=== PATIENT | female | born 1990 | race Caucasian/White ===

== ENCOUNTER 2018-08-27 08:42 | Emergency (ER) | payer OTHER ==
--- NOTE | 2018-08-27 09:40 | XRAY Report ---
Reason: Pain with walking Procedure Date: 08/27/2018 Accession Number: [id number] / [id number] Procedure: XR - Foot 3 View RT CPT Code: FULL RESULT: EXAM: RIGHT FOOT RADIOGRAPHY EXAM DATE: 08/27/2018 09:22 AM. CLINICAL HISTORY: Pain with walking. COMPARISON: None. TECHNIQUE: 3 views. FINDINGS: Bones: Normal. No fractures or bone lesions. Secondary ossicle adjacent to the navicular. Joints: Normal. No subluxations. Soft Tissues: Normal. No soft tissue swelling. IMPRESSION: Normal foot radiography. RADIA
--- NOTE | 2018-08-27 10:47 | ED Physician Documentation ---
PD HPI LOWER EXT INJURY - Stated complaint Stated Complaint: RT FOOT INJURY - Chief complaint Chief Complaint: Ext Problem - History obtained from History obtained from: Patient, Family - History of Present Illness PD HPI LOW EXT INJURY LOCATION: Right, Foot Type of injury: Twist Where injury occurred: Park Timing - onset: Yesterday Timing - duration: Days (1) Timing - details: Abrupt onset, Still present Improved by: Rest, Ice, Immobilization Worsened by: Moving, Palpating Associated symptoms: No: Weakness, Numbness, Tingling, Swelling Similar symptoms before: Has not had sx before Recently seen: Not recently seen - Additional information Additional information: 28-year-old female was playing softball yesterday when she was playing first base she caught the ball and went to turn around and twisted her foot and she has some pain along the medial aspect of the right foot. She is having pain with weightbearing. Review of Systems Constitutional: denies: Fever Eyes: denies: Decreased vision Ears: denies: Ear pain Nose: denies: Congestion Throat: denies: Sore throat Respiratory: denies: Cough GI: denies: Vomiting PD PAST MEDICAL HISTORY - Past Medical History Cardiovascular: None Respiratory: None Endocrine/Autoimmune: None GI: None : None HEENT: None Psych: Depression Musculoskeletal: None Derm: None - Past Surgical History Past Surgical History: Yes General: Appendectomy - Present Medications Home Medications: Ambulatory Orders Medication Instructions Recorded Confirmed Sertraline HCl [Zoloft] 100 mg PO DAILY 03/15/14 10/07/14 Naproxen [Naprosyn] 250 mg PO DAILY 10/07/14 10/07/14 Sulfamethoxazole/Trimethoprim 1 each PO BID #14 tablet 10/07/14 [Sulfamethoxazole-Tmp Ds Tablet] - Allergies Allergies/Adverse Reactions: Allergies Allergy/AdvReac Type Severity Reaction Status Date / Time No Known Drug Allergies Allergy Verified 08/27/18 09:04 - Social History Does the pt smoke?: No Smoking Status: Never smoker Does the pt drink ETOH?: No Does the pt have substance abuse?: No - Immunizations Immunizations are current?: Yes - POLST Patient has POLST: No PD ED PE NORMAL - Vitals Vital signs reviewed: Yes (normal ) - General General: Alert and oriented X 3, No acute distress, Well developed/nourished - HEENT HEENT: Atraumatic, PERRL, EOMI - Respiratory Respiratory: No respiratory distress - Derm Derm: Normal color, Warm and dry, No rash - Extremities Extremities: No deformity, No edema, Other (There is pain to palpation of the medial aspect of the right foot over the cuboid and not over the proxima 5th or the malleoli ) - Neuro Neuro: Alert and oriented X 3, mat making machine tender 2-12 intact, No motor deficit, No sensory deficit, Normal speech Eye Opening: Spontaneous Motor: Obeys Commands Verbal: Oriented GCS Score: 15 - Psych Psych: Normal mood, Normal affect Results - Vitals Vitals: Vital Signs - 24 hr 08/27/18 08/27/18 09:01 11:29 Temperature 35.9 C L Heart Rate 67 64 Respiratory 18 14 Rate Blood Pressure 103/67 106/81 H O2 Saturation 100 97 Oxygen O2 Source Room air - Rads (name of study) foot R Radiology: Prelim report reviewed (Impression: Normal foot radiography.), EMP read indepedently, See rad report PD MEDICAL DECISION MAKING - ED course Complexity details: reviewed results, re-evaluated patient, considered differential, d/w patient ED course: 28-year-old female with a sprain of her foot will require a posterior splint and crutches. Departure - Departure Disposition: 01 Home, Self Care Clinical Impression: Right foot sprain Qualifiers: Encounter type: initial encounter Qualified Code(s): S93.601A - Unspecified sprain of right foot, initial encounter Condition: Stable Instructions: ED Sprain Foot Follow-Up: [facility] [Provider Group] Forms: Activity restrictions Discharge Date/Time: 08/27/18 11:29
[2018-08-27 11:30] VITALS: BP 106/81
== END 2018-08-27 11:29 | disposition home or self-care (01) ==
LOC: ED 08:42
DX: S93.601A Unspecified sprain of right foot, initial encounter (principal); X50.1XXA Overexertion from prolonged static or awkward postures, initial encounter; Y93.64 Activity, baseball; Y92.830 Public park as the place of occurrence of the external cause
CPT/HCPCS: 29515

== ENCOUNTER 2019-02-17 11:26 | Emergency (ER) | payer OTHER ==
--- NOTE | 2019-02-17 12:14 | ED Physician Documentation ---
History of Present Illness - Stated complaint Stated Complaint: COUGH/SORE THROAT - Chief complaint Chief Complaint: Fever - Additonal information Additional information: This is a 28-year-old female who denies past medical history who presents with cough, sore throat, and bilateral ear discomfort for the last 3 days. Her son has been sick with similar symptoms. She has not had measured fever recently, she felt a tactile fever initially with her symptoms. She denies any difficulty breathing or chest pain, no vomiting. Review of Systems Cardiac: denies: Chest pain / pressure Respiratory: reports: Cough Skin: denies: Rash Immunocompromised: denies: Immunocompromised PD PAST MEDICAL HISTORY - Past Medical History Cardiovascular: None Respiratory: None Endocrine/Autoimmune: None GI: None : None HEENT: None Psych: Depression Musculoskeletal: None Derm: None - Past Surgical History Past Surgical History: Yes General: Appendectomy - Present Medications Home Medications: Ambulatory Orders Medication Instructions Recorded Confirmed Sertraline HCl [Zoloft] 100 mg PO DAILY 03/15/14 10/07/14 Naproxen [Naprosyn] 250 mg PO DAILY 10/07/14 10/07/14 Sulfamethoxazole/Trimethoprim 1 each PO BID #14 tablet 10/07/14 [Sulfamethoxazole-Tmp Ds Tablet] Benzonatate [Tessalon Perle] 100 - 200 mg PO TID PRN #30 capsule 02/17/19 Triamcinolone 0.1% Oint [Kenalog 1 applic TOP BID 7 Days #1 tube 02/17/19 0.1% Oint] - Allergies Allergies/Adverse Reactions: Allergies Allergy/AdvReac Type Severity Reaction Status Date / Time No Known Drug Allergies Allergy Verified 02/17/19 11:32 - Social History Does the pt smoke?: No Smoking Status: Never smoker Does the pt drink ETOH?: No Does the pt have substance abuse?: No - Immunizations Immunizations are current?: Yes - POLST Patient has POLST: No PD ED PE NORMAL - Vitals Vital signs reviewed: Yes - General General: Alert and oriented X 3, No acute distress - HEENT HEENT: Atraumatic, PERRL, Other (Mild posterior pharynx erythema without edema or exudate) - Neck Neck: Supple, no meningeal sign - Cardiac Cardiac: RRR - Respiratory Respiratory: Clear bilaterally - Abdomen Abdomen: Soft, Non tender, Non distended - Derm Derm: Warm and dry - Extremities Extremities: No deformity, Other (On the left palm there is a 1 cm region of dry skin mild erythema, no open sores, no surrounding lesions, there are no other spots on her palms or soles.) - Neuro Neuro: Alert and oriented X 3 - Psych Psych: Normal mood, Normal affect Results - Vitals Vitals: Vital Signs - 24 hr 02/17/19 02/17/19 11:32 13:59 Temperature 36.8 C 36.8 C Heart Rate 76 75 Respiratory 16 12 Rate Blood Pressure 103/70 106/75 O2 Saturation 98 98 Oxygen O2 Source Room air - Labs Labs: Laboratory Tests 02/17/19 02/17/19 11:39 12:50 Influenza A (Rapid) Negative Influenza B (Rapid) Negative Group A Strep Rapid Negative PD MEDICAL DECISION MAKING - ED course ED course: Patient is very well-appearing, vital signs are unremarkable, rapid strep and influenza testing is negative, and I think she is low risk for strep given her overall picture which is consistent with a viral URI. She has no signs of a suppurative otitis media, pneumonia, or other bacterial infection requiring antibiotics at this time. I discussed with her supportive care and return precautions. Patient also mentions that she has a area on her left hand which is dry and irritated, this has gotten worse after repeated handwashing. This appears to be likely some mild eczema, we will try a low-dose steroid cream. Other differentials were considered, but she has no signs of infection, vasculitis, no other lesions, no history that would suggest syphilis or coxsackie. She understands that if she is having worsening or not she needs to follow-up on this with her primary care provider. Patient was discharged home in good condition Departure - Departure Disposition: 01 Home, Self Care Clinical Impression: Viral syndrome Condition: Good Instructions: ED Viral Syndrome Follow-Up: Ade Rahman MD [Primary Care Provider] - Prescriptions: Benzonatate [Tessalon Perle] 100 - 200 mg PO TID PRN #30 capsule PRN Reason: Cough Triamcinolone 0.1% Oint [Kenalog 0.1% Oint] 1 applic TOP BID 7 Days #1 tube Comments: You appear to have a viral illness, your rapid strep is negative but we are send ing it for culture and you will be called if this turns positive. You may take the Tessalon Perles for cough, and [id number] cold/flu remedies. You may try a Benadryl or a phenylephrine-containing cold remedy to help with your nasal congestion. If you are having worsening symptoms return to the emergency department. Drink plenty of fluids and get adequate rest. Try the steroid cream on the dry spot on your hand, if it is not improving or getting worse you should either return to the emergency department or follow-up with your primary care provider for further evaluation. Discharge Date/Time: 02/17/19 14:06
[2019-02-17 13:11] LABS: RAPID STREP SCREEN Negative (Negative)
[2019-02-17] MEDS ORDERED: CHERRY SYRUP 10 ML UDC PO ONE (13:49)
[2019-02-17] MEDS ORDERED: DEXAMETHASONE 10 MG/ML VIAL PO STA (13:49)
[2019-02-17 14:00] VITALS: BP 106/75
== END 2019-02-17 14:06 | disposition home or self-care (01) ==
LOC: ED 11:26
DX: B34.9 Viral infection, unspecified (principal); L98.9 Disorder of the skin and subcutaneous tissue, unspecified
CPT/HCPCS: 87070; 87275; 87276; 87430; 99283; A9270

== ENCOUNTER 2019-06-06 16:21 | Emergency (ER) | payer OTHER ==
[2019-06-06] MEDS ORDERED: SODIUM CHLORIDE 0.9% 1,000 ML IV ONE (16:36)
[2019-06-06] MEDS ORDERED: PROMETHAZINE INJ 25 MG in SODIUM CHLORIDE 0.9% 50 ML IV STA (16:37)
[2019-06-06] MEDS ORDERED: KETOROLAC 30 MG/ML VIAL IVP STA (16:37)
--- NOTE | 2019-06-06 16:48 | ED Physician Documentation ---
History of Present Illness - Stated complaint Stated Complaint: CUELLO,N/V,BLURRED VISION - Chief complaint Chief Complaint: Neuro - History obtained from History obtained from: Patient (Pleasant 28-year-old female comes in today chief complaint of a migraine headache that started this afternoon around noon, started suddenly, started on the right eye and the pain goes to the back of her head. She took 2 migraine Excedrin at 1230, she had no relief 2 hours later so she took 2 more which again provided no relief for her. She did try a friend's Imitrex nasal spray at approximately 330, this has not helped her either. She does admit to having some nausea vomiting with this. She also admits that she has a history of migraine headaches since she was about 9 years old, she is not sought out medical treatment for her migraine headaches in the past. She denies any recent fevers chills diarrhea, or any sick contacts at home. She is on oral contraceptive control pills, Zoloft for depression. She has no other concerns today.) - History of Present Illness Timing: Today, How many hours ago (5) Pain level max: 9 Pain level now: 9 Quality: sharp Radiates to: from right right to back of her head on the right Improved by: nothing Worsened by: light, movement. Associated symptoms: nausea, vomiting. - Treatment prior to arrival Treatment prior to arrival: excedrin Migraine x 2 at noon, and then again 2 more at 1430. imitrex nasal x 1, two hours ago. Review of Systems Constitutional: reports: Reviewed and negative Eyes: reports: Decreased vision, Photophobia. denies: Loss of vision, Irritation Ears: reports: Reviewed and negative Nose: reports: Reviewed and negative Throat: reports: Reviewed and negative Cardiac: reports: Reviewed and negative. denies: Chest pain / pressure, Palpitations Respiratory: denies: Dyspnea, Cough, Hemoptysis, Wheezing GI: reports: Nausea, Vomiting. denies: Abdominal Pain, Constipation, Diarrhea : reports: LMP ("three weeks ago") Skin: reports: Reviewed and negative Musculoskeletal: reports: Reviewed and negative Neurologic: reports: Headache. denies: Generalized weakness, Focal weakness, Difficulty speaking, Syncope, Seizure, Confused, Altered mental status, Head injury PD PAST MEDICAL HISTORY - Past Medical History Cardiovascular: None Respiratory: None Endocrine/Autoimmune: None GI: None : None HEENT: None Psych: Depression Musculoskeletal: None Derm: None - Past Surgical History Past Surgical History: Yes General: Appendectomy Neuro: Other (Migraine headaches) - Present Medications Home Medications: Ambulatory Orders Medication Instructions Recorded Confirmed Sertraline HCl [Zoloft] 100 mg PO DAILY 03/15/14 10/07/14 Naproxen [Naprosyn] 250 mg PO DAILY 10/07/14 10/07/14 Sulfamethoxazole/Trimethoprim 1 each PO BID #14 tablet 10/07/14 [Sulfamethoxazole-Tmp Ds Tablet] Benzonatate [Tessalon Perle] 100 - 200 mg PO TID PRN #30 capsule 02/17/19 Triamcinolone 0.1% Oint [Kenalog 1 applic TOP BID 7 Days #1 tube 02/17/19 0.1% Oint] Ondansetron Odt [Zofran Odt] 4 mg TL Q6H PRN #10 tablet 06/06/19 - Allergies Allergies/Adverse Reactions: Allergies Allergy/AdvReac Type Severity Reaction Status Date / Time No Known Drug Allergies Allergy Verified 06/06/19 16:30 - Social History Does the pt smoke?: No Smoking Status: Never smoker Does the pt drink ETOH?: No Does the pt have substance abuse?: No - Immunizations Immunizations are current?: Yes - POLST Patient has POLST: No PD ED PE NORMAL - General General: Alert and oriented X 3, Well developed/nourished, Other (Moderate distress) - HEENT HEENT: Atraumatic, PERRL, EOMI, Moist mucous membranes, Pharynx benign - Neck Neck: Supple, no meningeal sign, No adenopathy - Cardiac Cardiac: RRR, No murmur, No gallop - Respiratory Respiratory: No respiratory distress, Clear bilaterally - Abdomen Abdomen: Soft, Non tender - Derm Derm: Normal color, Warm and dry, No rash PD ED PE EXPANDED - General General: In Pain, In distress Results - Vitals Vitals: Vital Signs - 24 hr 06/06/19 16:26 Temperature 36.2 C L Heart Rate 75 Respiratory 16 Rate Blood Pressure 109/77 O2 Saturation 100 Oxygen O2 Source Room air - Labs Labs: Laboratory Tests 06/06/19 06/06/19 16:45 16:45 WBC 9.2 RBC 4.70 Hgb 14.3 Hct 42.7 MCV 90.9 MCH 30.4 MCHC 33.5 RDW 12.4 Plt Count 207 MPV 10.7 Neut # (Auto) 7.2 H Lymph # (Auto) 1.5 [place] # (Auto) 0.4 Eos # (Auto) 0.0 Baso # (Auto) 0.0 Absolute Nucleated RBC 0.00 Nucleated RBC % 0.0 Sodium 135 Potassium 3.5 Chloride 101 Carbon Dioxide 25 Anion Gap 9.0 BUN 11 Creatinine 0.6 Estimated GFR (MDRD) 118 Glucose 104 H Calcium 9.0 Total Bilirubin 0.7 AST 19 ALT 17 Alkaline Phosphatase 34 L Total Protein 8.1 Albumin 4.5 Globulin 3.6 Albumin/Globulin Ratio 1.3 Lipase 48 - Rads (name of study) No standard instances Radiology: See rad report (Head CT impression: Negative for acute or focal intracranial abnormalities.) PD MEDICAL DECISION MAKING - ED course Complexity details: re-evaluated patient (Patient is doing much better after the IV fluid and IV medications. She states her pain now is about a four 4-1/2 out of 10, worse before was intermittent when she arrived. Patient states she is ready to go home. Discussed with the patient options she can do at home should she feel migraine, not in the future that include taking ibuprofen, Tylenol, caffeine, and Benadryl orally then lie down for an hour or 2 resting. Patient understands this and agrees with it. She would also like some Zofran to go home up to help with nausea in the future.), d/w patient Departure - Departure Disposition: 01 Home, Self Care Clinical Impression: Migraine headache with aura Qualifiers: Status migrainosus presence: without status migrainosus Intractability: not intractable Qualified Code(s): G43.109 - Migraine with aura, not intractable, without status migrainosus Condition: Good Instructions: ED Headache Migraine Prescriptions: Ondansetron Odt [Zofran Odt] 4 mg TL Q6H PRN #10 tablet PRN Reason: Nausea / Vomiting Comments: follow up with your primary care provider. Do not drink or drive today. Take it easy the rest of today. As I discussed I do you can use Tylenol, ibuprofen, Benadryl, caffeine, and antinausea pills are prescribed for you today for future migraine headaches to hopefully prevent him from getting as bad as they were today. Make sure you are stay well-hydrated.
[2019-06-06] MEDS ORDERED: diphenhydrAMINE INJ 50 MG/ML VIAL IVP STA (16:52)
[2019-06-06 17:05] LABS: BASOPHILS % (AUTO) 0.3 %; EOSINOPHILS % (AUTO) 0.2 %; HGB - HEMOGLOBIN 14.3 g/dL (12.0-16.0); LYMPHOCYTES # (AUTO) 1.5 10^3/uL (1.5-3.5); LYMPHOCYTES % (AUTO) 16.1 %; MEAN CORPUSCULAR HEMOGLOBIN 30.4 pg (27.0-31.0); MEAN CORPUSCULAR HGB CONC 33.5 g/dL (32.0-36.0); MEAN CORPUSCULAR VOLUME 90.9 fL (81.0-99.0); MEAN PLATELET VOLUME 10.7 fL (7.9-10.8); MONOCYTES # (AUTO) 0.4 10^3/uL (0.0-1.0); MONOCYTES % (AUTO) 4.5 %; NEUTROPHILS # (AUTO) 7.2 10^3/uL (1.5-6.6); NEUTROPHILS % (AUTO) 78.4 %; PLT - PLATELET COUNT 207 10^3/uL (130-450); RED CELL DISTRIBUTION WIDTH 12.4 % (12.0-15.0); WHITE BLOOD COUNT 9.2 x10^3/uL (4.8-10.8)
[2019-06-06 17:16] LABS: ALBUMIN 4.5 g/dL (3.2-5.5); ALBUMIN/GLOBULIN RATIO 1.3 (1.0-2.2); BILIRUBIN,TOTAL 0.7 mg/dL (0.2-1.0); CREATININE 0.6 mg/dL (0.4-1.0); TOTAL PROTEIN 8.1 g/dL (6.7-8.2)
--- NOTE | 2019-06-06 17:39 | CT Report ---
Reason: change in vision OD, headache on right side. Procedure Date: 06/06/2019 Accession Number: [id number] / [id number] Procedure: CT - HEAD WO CPT Code: Final Report FULL RESULT: EXAM: CT HEAD EXAM DATE: 06/06/2019 05:25 PM. CLINICAL HISTORY: Change in vision OD, headache on right side. COMPARISON: None. TECHNIQUE: Multiaxial CT images were obtained from the foramen magnum to the vertex. Reformats: Sagittal and coronal. IV contrast: None. In accordance with CT protocol optimization, one or more of the following dose reduction techniques were utilized for this exam: automated exposure control, adjustment of mA and/or KV based on patient size, or use of iterative reconstructive technique. FINDINGS: Parenchyma: No intraparenchymal hemorrhage. No evidence of mass, midline shift, or CT findings of infarction. Carlin-white differentiation is distinct. Extraaxial Spaces: Normal for age. No subdural or epidural collections identified. Ventricles: Normal in size and position. Sinuses and Orbits: There is complete opacification of the left mastoid sinus. Bones: Negative for fracture. No focal bony destruction. Other: None. IMPRESSION: 1. Negative for an acute or focal intracranial abnormality. No CT abnormality to explain clinical symptoms. 2. Left mastoid sinus inflammatory disease. RADIA
[2019-06-06 18:11] VITALS: BP 105/68
== END 2019-06-06 18:12 | disposition home or self-care (01) ==
LOC: ED 16:21
DX: G43.109 Migraine with aura, not intractable, without status migrainosus (principal); J32.8 Other chronic sinusitis
CPT/HCPCS: 36415; 70450; 80053; 83690; 85025; 96365; 96375; 99284; J1200; J7040

== ENCOUNTER 2020-03-23 18:43 | Emergency (ER) | payer OTHER ==
[2020-03-23 19:22] LABS: BILIRUBIN,URINE NEGATIVE (NEGATIVE); GLUCOSE, URINE (UA) NEGATIVE (NEGATIVE); KETONES,URINE (UA) NEGATIVE (NEGATIVE); LEUKOCYTE ESTERASE, URINE NEGATIVE (NEGATIVE); NITRITE,URINE NEGATIVE (NEGATIVE); OCCULT BLOOD,URINE TRACE-INTA (NEGATIVE); PROTEIN,URINE NEGATIVE (NEGATIVE); UROBILINOGEN,URINE 0.2 (NORMAL) E.U./dL (NORMAL)
[2020-03-23 19:24] LABS: BASOPHILS % (AUTO) 0.4 %; EOSINOPHILS # (AUTO) 0.1 10^3/uL (0.0-0.7); EOSINOPHILS % (AUTO) 0.6 %; HGB - HEMOGLOBIN 13.7 g/dL (12.0-16.0); LYMPHOCYTES # (AUTO) 2.9 10^3/uL (1.5-3.5); LYMPHOCYTES % (AUTO) 27.1 %; MEAN CORPUSCULAR HEMOGLOBIN 30.5 pg (27.0-31.0); MEAN CORPUSCULAR HGB CONC 33.6 g/dL (32.0-36.0); MEAN CORPUSCULAR VOLUME 90.9 fL (81.0-99.0); MEAN PLATELET VOLUME 10.7 fL (7.9-10.8); MONOCYTES # (AUTO) 0.5 10^3/uL (0.0-1.0); MONOCYTES % (AUTO) 4.4 %; NEUTROPHILS # (AUTO) 7.1 10^3/uL (1.5-6.6); NEUTROPHILS % (AUTO) 67.1 %; PLT - PLATELET COUNT 258 10^3/uL (130-450); RED BLOOD COUNT 4.49 10^6/uL (4.20-5.40); RED CELL DISTRIBUTION WIDTH 12.8 % (12.0-15.0); WHITE BLOOD COUNT 10.5 x10^3/uL (4.8-10.8)
[2020-03-23 19:25] LABS: CLARITY,URINE CLEAR (CLEAR); HCG UR QUAL POSITIVE
[2020-03-23 19:35] LABS: ALBUMIN 4.3 g/dL (3.2-5.5); ALBUMIN/GLOBULIN RATIO 1.2 (1.0-2.2); BILIRUBIN,TOTAL 0.6 mg/dL (0.2-1.0); CALCIUM 9.2 mg/dL (8.5-10.3); CREATININE 0.6 mg/dL (0.4-1.0); TOTAL PROTEIN 7.9 g/dL (6.7-8.2)
--- NOTE | 2020-03-23 20:56 | ED Physician Documentation ---
PD HPI FEMALE - Stated complaint Stated Complaint: FEMALE - Chief complaint Chief Complaint: Abd Pain - History obtained from History obtained from: Patient - History of Present Illness Timing - onset: How many days ago (2) Timing - duration: Days (2) Timing - details: Gradual onset Pain level max: 3 Pain level max: 2 Associated symptoms: Abdominal pain (lower abd pain and L pelvic pain), Vaginal bleeding (heavy, intermittent for 3 days) [employer] History: G (5), P (4) Recently seen: Not recently seen - Additional information Additional information: 29-year-old female presents to the emergency department with heavy vaginal bleeding intermittent for the past 3 days. She also has intermittent pelvic cramping. Nothing makes it better or worse. She is on oral contraceptives at home. Review of Systems Constitutional: denies: Fever, Chills Respiratory: denies: Cough GI: denies: Vomiting, Diarrhea : denies: Dysuria Skin: denies: Rash Musculoskeletal: denies: Neck pain, Back pain PD PAST MEDICAL HISTORY - Past Medical History Past Medical History: Yes Cardiovascular: None Respiratory: None Endocrine/Autoimmune: None GI: None : None HEENT: None Psych: Depression Musculoskeletal: None Derm: None - Past Surgical History Past Surgical History: Yes General: Appendectomy Neuro: Other - Present Medications Home Medications: Ambulatory Orders Medication Instructions Recorded Confirmed Sertraline HCl [Zoloft] 100 mg PO DAILY 03/15/14 10/07/14 Naproxen [Naprosyn] 250 mg PO DAILY 10/07/14 10/07/14 Sulfamethoxazole/Trimethoprim 1 each PO BID #14 tablet 10/07/14 [Sulfamethoxazole-Tmp Ds Tablet] Benzonatate [Tessalon Perle] 100 - 200 mg PO TID PRN #30 capsule 02/17/19 Triamcinolone 0.1% Oint [Kenalog 1 applic TOP BID 7 Days #1 tube 02/17/19 0.1% Oint] Ondansetron Odt [Zofran Odt] 4 mg TL Q6H PRN #10 tablet 06/06/19 - Allergies Allergies/Adverse Reactions: Allergies Allergy/AdvReac Type Severity Reaction Status Date / Time No Known Drug Allergies Allergy Verified 03/23/20 18:52 - Social History Does the pt smoke?: No Smoking Status: Never smoker Does the pt drink ETOH?: No Does the pt have substance abuse?: No - Immunizations Immunizations are current?: Yes - POLST Patient has POLST: No PD ED PE NORMAL - Vitals Vital signs reviewed: Yes - General General: Alert and oriented X 3, No acute distress - HEENT HEENT: Moist mucous membranes - Neck Neck: Supple, no meningeal sign - Cardiac Cardiac: RRR, Strong equal pulses - Respiratory Respiratory: No respiratory distress, Clear bilaterally - Abdomen Abdomen: Soft, Non tender, Non distended - Derm Derm: Warm and dry - Extremities Extremities: No edema, No calf tenderness / cord - Neuro Neuro: Alert and oriented X 3 - Psych Psych: Normal mood, Normal affect Results - Vitals Vitals: Vital Signs - 24 hr 03/23/20 03/23/20 03/23/20 18:45 20:32 22:13 Temperature 36.5 C 36.9 C 37.0 C Heart Rate 99 85 75 Respiratory 14 18 14 Rate Blood Pressure 127/76 121/71 122/77 O2 Saturation 75 L 98 98 Oxygen O2 Source Room air - Labs Labs: Laboratory Tests 03/23/20 03/23/20 03/23/20 19:10 19:16 19:16 WBC 10.5 RBC 4.49 Hgb 13.7 Hct 40.8 MCV 90.9 MCH 30.5 MCHC 33.6 RDW 12.8 Plt Count 258 MPV 10.7 Neut # (Auto) 7.1 H Lymph # (Auto) 2.9 [place] # (Auto) 0.5 Eos # (Auto) 0.1 Baso # (Auto) 0.0 Absolute Nucleated RBC 0.00 Nucleated RBC % 0.0 Sodium 133 L Potassium 3.3 L Chloride 101 Carbon Dioxide 22 Anion Gap 10.0 BUN 11 Creatinine 0.6 Estimated GFR (MDRD) 117 Glucose 139 H Calcium 9.2 Total Bilirubin 0.6 AST 19 ALT 15 Alkaline Phosphatase 26 L Total Protein 7.9 Albumin 4.3 Globulin 3.6 Albumin/Globulin Ratio 1.2 Lipase 40 HCG, Quant Urine Color YELLOW Urine Clarity CLEAR Urine pH 6.0 Ur Specific [place] 1.025 Urine Protein NEGATIVE Urine Glucose (UA) NEGATIVE Urine Ketones NEGATIVE Urine Occult Blood TRACE-INTA Urine Nitrite NEGATIVE Urine Bilirubin NEGATIVE Urine Urobilinogen 0.2 (NORMAL) Ur Leukocyte Esterase NEGATIVE Ur Microscopic Review NOT INDICATED Urine Culture Comments NOT INDICATED Urine HCG, Qual POSITIVE 03/23/20 19:16 WBC RBC Hgb Hct MCV MCH MCHC RDW Plt Count MPV Neut # (Auto) Lymph # (Auto) [place] # (Auto) Eos # (Auto) Baso # (Auto) Absolute Nucleated RBC Nucleated RBC % Sodium Potassium Chloride Carbon Dioxide Anion Gap BUN Creatinine Estimated GFR (MDRD) Glucose Calcium Total Bilirubin AST ALT Alkaline Phosphatase Total Protein Albumin Globulin Albumin/Globulin Ratio Lipase HCG, Quant 2075.00 Urine Color Urine Clarity Urine pH Ur Specific [place] Urine Protein Urine Glucose (UA) Urine Ketones Urine Occult Blood Urine Nitrite Urine Bilirubin Urine Urobilinogen Ur Leukocyte Esterase Ur Microscopic Review Urine Culture Comments Urine HCG, Qual - Rads (name of study) OB ultrasound Radiology: Prelim report reviewed, EMP read contemporaneously, See rad report (Single possible intrauterine estimated 5 weeks, 1 day gestational age. Possible 1.8 cm left corpus luteum cyst.) PD MEDICAL DECISION MAKING - ED course Complexity details: reviewed results, re-evaluated patient, considered differential, d/w patient ED course: 29-year-old female presents with vaginal bleeding. hCG was positive, quant of 2000. Ultrasound reveals possible IUP, 5 weeks 1 day. Ectopic precautions given at bedside. She will have her hCG redrawn in 3 days, will likely need repeat ultrasound in a week if the hCG is increasing. Patient counseled regarding signs and symptoms for which I believe and urgent re-evaluation would be necessary. Patient with good understanding of and agreement to plan and is comfortable going home at this time This document was made in part using voice recognition software. While efforts are made to proofread this document, sound alike and grammatical errors may occur. Departure - Departure Disposition: 01 Home, Self Care Clinical Impression: Bleeding in early Condition: Good Instructions: ED Miscarriage Poss Follow-Up: [facility] [place] [Provider Group] - Within 3 Days Comments: Your hCG is approximately 2000 today. Your ultrasound reveals a gestational sac, approximately 5 weeks, 1 day. You will need to have your hCG repeated in 3 days to see if this is rising or falling. If it is rising, ultrasound should be repeated in about a week. If it is falling, you are likely miscarrying. Follow-up with your doctor for further care. Discharge Date/Time: 03/23/20 22:18
[2020-03-23 22:14] VITALS: BP 122/77
--- NOTE | 2020-03-24 09:12 | Ultrasound Report ---
PROCEDURE: OB First Trimester w/TV INDICATIONS: preg, vaginal bleeding OUTSIDE/PRIOR DATING DATA: Last menstrual period (LMP): 02/10/2020. LMP-based estimated date of delivery (MARGARETTE): 11/16/2020. First dating scan (date and location): None. Estimated date of delivery (MARGARETTE) from first dating scan: None. TECHNIQUE: Real-time scanning was performed of the fetus and maternal pelvic organs, with image documentation. Endovaginal scanning was also performed to better visualize the fetus and maternal ovaries. COMPARISON: None FINDINGS: Embryo: There is single intrauterine gestational sac. No pole or cardiac activity is det ected. Possible small yolk sac is seen. Gestational sac size measures 4.3 mm. Estimated gestational a ge is 5 weeks 1 day. Cervix is closed and is grossly normal in length. Maternal organs: Ovaries are visualized. Small corpus luteal cyst is noted in left ovary measures 1. 8 cm in size. IMPRESSION: 1. Single possible early intrauterine with estimated gestational age of 5 weeks 1 day. No f etal pole is seen. Follow-up with serial beta-hCG is recommended for evaluation of viability. 2. Possible 1.8 cm left corpus luteal cyst. No discrepancies from preliminary reading. Reviewed by: Magdy Mac MD on 03/24/2020 9:10 AM PST Approved by: Magdy Mac MD on 03/24/2020 9:10 AM PST Station ID: [id number]
== END 2020-03-23 22:18 | disposition home or self-care (01) ==
LOC: ED 18:43
DX: O20.9 Hemorrhage in early pregnancy, unspecified (principal); Z3A.01 Less than 8 weeks gestation of pregnancy
CPT/HCPCS: 36415; 80053; 81001; 81003; 81025; 83690; 84702; 85025; 87086; 99284

== ENCOUNTER 2020-04-04 14:41 | Emergency (ER) | payer OTHER ==
--- NOTE | 2020-04-04 15:47 | ED Physician Documentation ---
History of Present Illness - Stated complaint Stated Complaint: DIZZY, LIGHTHEADED,BLEEDING +PREG - Chief complaint Chief Complaint: General - History obtained from History obtained from: Patient - History of Present Illness Timing: Today - Additonal information Additional information: 29-year-old female has had a miscarriage 1 week ago at about 5 weeks and she had her bleeding slowed down from a pad to a liner and then today she has had an increase in her bleeding again where she is using a pad. She is not passing clots and today she is complaining of some lightheadedness and dizziness with some nausea. Review of Systems Constitutional: denies: Fever Eyes: denies: Decreased vision Ears: denies: Ear pain Nose: denies: Congestion Throat: denies: Sore throat Cardiac: denies: Chest pain / pressure, Palpitations, Pedal edema, Calf pain Respiratory: denies: Dyspnea, Cough GI: reports: Nausea. denies: Abdominal Pain, Vomiting, Constipation, Diarrhea : denies: Dysuria, Frequency Skin: denies: Rash Musculoskeletal: denies: Neck pain, Back pain, Extremity pain Neurologic: reports: Near syncope. denies: Generalized weakness, Focal weakness, Numbness, Difficulty speaking, Altered mental status, Headache, Head injury, LOC PD PAST MEDICAL HISTORY - Past Medical History Cardiovascular: None Respiratory: None Endocrine/Autoimmune: None GI: None : None HEENT: None Psych: Depression Musculoskeletal: None Derm: None - Past Surgical History Past Surgical History: Yes General: Appendectomy Neuro: Other - Present Medications Home Medications: Ambulatory Orders Medication Instructions Recorded Confirmed Sertraline HCl [Zoloft] 100 mg PO DAILY 03/15/14 10/07/14 - Allergies Allergies/Adverse Reactions: Allergies Allergy/AdvReac Type Severity Reaction Status Date / Time No Known Drug Allergies Allergy Verified 04/04/20 15:01 - Social History Does the pt smoke?: No Smoking Status: Never smoker Does the pt drink ETOH?: No Does the pt have substance abuse?: No - Immunizations Immunizations are current?: Yes - POLST Patient has POLST: No PD ED PE NORMAL - Vitals Vital signs reviewed: Yes (hypertensive ) - General General: Alert and oriented X 3, No acute distress, Well developed/nourished - HEENT HEENT: Atraumatic, PERRL, EOMI - Neck Neck: Supple, no meningeal sign, No bony TTP - Cardiac Cardiac: RRR, No murmur - Respiratory Respiratory: No respiratory distress, Clear bilaterally - Abdomen Abdomen: Normal bowel sounds, Soft, Non tender, Non distended, No organomegaly - Back Back: No CVA TTP, No spinal TTP - Derm Derm: Normal color, Warm and dry, No rash - Extremities Extremities: No deformity, No edema - Neuro Neuro: Alert and oriented X 3, crap shooter 2-12 intact, No motor deficit, No sensory deficit, Normal speech Eye Opening: Spontaneous Motor: Obeys Commands Verbal: Oriented GCS Score: 15 - Psych Psych: Normal mood, Normal affect Results - Vitals Vitals: Vital Signs - 24 hr 04/04/20 14:56 Temperature 36.6 C Heart Rate 74 Respiratory 18 Rate Blood Pressure 115/89 H O2 Saturation 99 Oxygen O2 Source Room air - Labs Labs: Laboratory Tests 04/04/20 04/04/20 04/04/20 15:47 15:47 15:55 WBC 7.6 RBC 4.47 Hgb 13.5 Hct 41.3 MCV 92.4 MCH 30.2 MCHC 32.7 RDW 12.4 Plt Count 217 MPV 10.5 Neut # (Auto) 5.0 Lymph # (Auto) 2.1 Pratt # (Auto) 0.4 Eos # (Auto) 0.1 Baso # (Auto) 0.1 Absolute Nucleated RBC 0.00 Nucleated RBC % 0.0 Sodium 137 Potassium 3.5 Chloride 101 Carbon Dioxide 24 Anion Gap 12.0 BUN 14 Creatinine 0.6 Estimated GFR (MDRD) 117 Glucose 140 H Calcium 9.5 Total Bilirubin 0.3 AST 19 ALT 15 Alkaline Phosphatase 30 L Total Protein 7.4 Albumin 4.1 Globulin 3.3 Albumin/Globulin Ratio 1.2 Lipase 34 Urine Color YELLOW Urine Clarity CLEAR Urine pH 6.0 Ur Specific [place] 1.015 Urine Protein NEGATIVE Urine Glucose (UA) NEGATIVE Urine Ketones NEGATIVE Urine Occult Blood TRACE-INTA Urine Nitrite NEGATIVE Urine Bilirubin NEGATIVE Urine Urobilinogen 0.2 (NORMAL) Ur Leukocyte Esterase NEGATIVE Ur Microscopic Review NOT INDICATED Urine Culture Comments NOT INDICATED Procedures - Bedside sono Bedside sono by EMP: With use of bedside ultrasound the uterus is imaged and there is a generous endometrial stripe. There is no free fluid in the endometrium and only minimal in the cervical canal. - IVC sono (time) 1540 Bedside IVC sono: IVC measures (cm) (1.2), Dehydration (est 1liter deficit) PD MEDICAL DECISION MAKING - ED course Complexity details: reviewed old records, reviewed results, re-evaluated patient, considered differential, d/w patient ED course: 29 y/o female with dizziness/lightheadedness has normal blood counts and is minimally dehydrated. She is able to hydrate in the ED orally Departure - Departure Disposition: 01 Home, Self Care Clinical Impression: Dehydration Condition: Stable Instructions: ED Dehydration Follow-Up: ORESTES Leon [Provider Group]
[2020-04-04 15:52] LABS: BASOPHILS # (AUTO) 0.1 10^3/uL (0.0-0.1); BASOPHILS % (AUTO) 0.7 %; EOSINOPHILS # (AUTO) 0.1 10^3/uL (0.0-0.7); EOSINOPHILS % (AUTO) 0.8 %; HGB - HEMOGLOBIN 13.5 g/dL (12.0-16.0); LYMPHOCYTES # (AUTO) 2.1 10^3/uL (1.5-3.5); LYMPHOCYTES % (AUTO) 27.1 %; MEAN CORPUSCULAR HEMOGLOBIN 30.2 pg (27.0-31.0); MEAN CORPUSCULAR HGB CONC 32.7 g/dL (32.0-36.0); MEAN CORPUSCULAR VOLUME 92.4 fL (81.0-99.0); MEAN PLATELET VOLUME 10.5 fL (7.9-10.8); MONOCYTES # (AUTO) 0.4 10^3/uL (0.0-1.0); MONOCYTES % (AUTO) 5.5 %; NEUTROPHILS % (AUTO) 65.5 %; PLT - PLATELET COUNT 217 10^3/uL (130-450); RED BLOOD COUNT 4.47 10^6/uL (4.20-5.40); RED CELL DISTRIBUTION WIDTH 12.4 % (12.0-15.0); WHITE BLOOD COUNT 7.6 x10^3/uL (4.8-10.8)
[2020-04-04 16:06] LABS: ALBUMIN 4.1 g/dL (3.2-5.5); ALBUMIN/GLOBULIN RATIO 1.2 (1.0-2.2); BILIRUBIN,TOTAL 0.3 mg/dL (0.2-1.0); CALCIUM 9.5 mg/dL (8.5-10.3); CREATININE 0.6 mg/dL (0.4-1.0); TOTAL PROTEIN 7.4 g/dL (6.7-8.2)
[2020-04-04 16:23] LABS: BILIRUBIN,URINE NEGATIVE (NEGATIVE); GLUCOSE, URINE (UA) NEGATIVE (NEGATIVE); KETONES,URINE (UA) NEGATIVE (NEGATIVE); LEUKOCYTE ESTERASE, URINE NEGATIVE (NEGATIVE); NITRITE,URINE NEGATIVE (NEGATIVE); OCCULT BLOOD,URINE TRACE-INTA (NEGATIVE); PROTEIN,URINE NEGATIVE (NEGATIVE); UROBILINOGEN,URINE 0.2 (NORMAL) E.U./dL (NORMAL)
[2020-04-04 16:24] LABS: CLARITY,URINE CLEAR (CLEAR)
[2020-04-04 16:40] VITALS: BP 114/80
== END 2020-04-04 16:40 | disposition home or self-care (01) ==
LOC: ED 14:41
DX: E86.0 Dehydration (principal); R42 Dizziness and giddiness
CPT/HCPCS: 80053; 81001; 81003; 83690; 85025; 87086; 99282; 99283

== ENCOUNTER 2020-12-20 11:39 | Emergency (ER) | payer OTHER ==
[2020-12-20 11:56] VITALS: BP 117/76
[2020-12-20] MEDS ORDERED: IBUPROFEN 600 MG TABLET PO STA (12:10)
--- NOTE | 2020-12-20 12:13 | ED Physician Documentation ---
History of Present Illness - Stated complaint Stated Complaint: RT WRIST INJURY - Chief complaint Chief Complaint: Trauma Ext - Additonal information Additional information: 30-year-old female presents emergency department for evaluation of acute right wrist pain sustained yesterday when she was rollerskating and fell backward onto her hands. She has had pain on the ulnar side though no deformity or swelling. She does have a remote history of previous injury to this wrist. She is right arm dominant. Review of Systems Constitutional: denies: Fever, Chills Eyes: reports: Reviewed and negative Ears: reports: Reviewed and negative Cardiac: reports: Reviewed and negative Respiratory: reports: Reviewed and negative GI: reports: Reviewed and negative : reports: Reviewed and negative Skin: denies: Rash, Lesions Musculoskeletal: reports: Extremity pain (right wrist) PD PAST MEDICAL HISTORY - Past Medical History Cardiovascular: None Respiratory: None Endocrine/Autoimmune: None GI: None : None HEENT: None Psych: Depression Musculoskeletal: None Derm: None - Past Surgical History Past Surgical History: Yes General: Appendectomy Neuro: Other - Present Medications Home Medications: Ambulatory Orders Medication Instructions Recorded Confirmed Sertraline HCl [Zoloft] 100 mg PO DAILY 03/15/14 10/07/14 - Allergies Allergies/Adverse Reactions: Allergies Allergy/AdvReac Type Severity Reaction Status Date / Time No Known Drug Allergies Allergy Verified 12/20/20 11:56 - Social History Does the pt smoke?: No Smoking Status: Never smoker Does the pt drink ETOH?: No Does the pt have substance abuse?: No - Immunizations Immunizations are current?: Yes - POLST Patient has POLST: No PD ED PE EXPANDED - General General: Alert, No acute distress, Well developed/nourished - Extremities Extremities: Right wrist (tenderness distal ulna. Normal flexion/extension. mild pain at base of 5th metacarpal. no snuffbox tenderness. no swelling/erythema) Results - Vitals Vitals: Vital Signs - 24 hr 12/20/20 11:54 Temperature 36.2 C L Heart Rate 81 Respiratory 16 Rate Blood Pressure 117/76 O2 Saturation 100 Oxygen O2 Source Room air - Rads (name of study) right wrist xr Radiology: Final report received (no acute fx) PD MEDICAL DECISION MAKING - ED course Complexity details: reviewed results, considered differential, d/w patient ED course: 30 year old female presents to the ED with acute right wrist pain after a fall yesterday. She has a very benign wrist exam overall. xray is negative for acut e fx or dislocation. Patient was given a Velcro wrist splint. Recommend Tylenol and ibuprofen at home for analgesia. Emergent return precautions discussed. Departure - Departure Disposition: 01 Home, Self Care Clinical Impression: Contusion of right wrist, initial encounter Condition: Stable Record reviewed to determine appropriate education?: Yes Instructions: ED Sprain Wrist Comments: The x-ray of your wrist does not show any broken bones. You likely have a minor sprain or contusion after your fall yesterday. I recommend that you take Tylenol or ibuprofen [id number] for discomfort. We're providing you with a wrist splint that you can wear over the next few days to help protect the wrist and support it. If you feel that your pain and movement is not markedly better after 7 to 10 days then please return to the ER for second evaluation so that we can repeat the x-ray.
--- NOTE | 2020-12-20 12:23 | XRAY Report ---
PROCEDURE: Wrist 3 View RT INDICATIONS: pain after fall TECHNIQUE: 3 views of the wrist were acquired. COMPARISON: None FINDINGS: Bones: No fractures or dislocations. No suspicious bony lesions. Note is made of negative ulnar va riance. Scaphoid view: Not done Soft tissues: No suspicious soft tissue calcifications. IMPRESSION: No fractures are seen. In this patient with a history of fall, please correlate with scaphoid tenderness. If there is scapho id tenderness, please refer this patient to radiology. An additional dedicated scaphoid image will be performed at no additional charge to the patient and an addendum issued to this report. Reviewed by: Dinesh Cuevas MD on 12/20/2020 11:22 AM [facility] Approved by: Dinesh Cuevas MD on 12/20/2020 11:22 AM [facility] Station ID: [id number]
== END 2020-12-20 12:36 | disposition home or self-care (01) ==
LOC: ED 11:39
DX: S60.211A Contusion of right wrist, initial encounter (principal); W19.XXXA Unspecified fall, initial encounter; Y93.51 Activity, roller skating (inline) and skateboarding
CPT/HCPCS: 73110; 99282; 99283; A9270

== ENCOUNTER 2021-04-12 16:55 | Emergency (ER) | payer OTHER ==
[2021-04-12 17:03] VITALS: BP 116/75
[2021-04-12] MEDS ORDERED: HYDROcod/ACETAM 5/325 MG TABLET PO STA (17:13)
--- NOTE | 2021-04-12 17:14 | ED Physician Documentation ---
History of Present Illness - Stated complaint Stated Complaint: RIGHT SIDE NECK STIFF/SWELLING/PX,FEVER - Chief complaint Chief Complaint: General - History obtained from History obtained from: Patient - Additonal information Additional information: 2 days of pain from the right anterior cervical lymph node. Low-grade fever at home to 100.4. No cat scratches or recent travel. No sore throat. Pain radiates throughout the right side of the neck and face but no specific ear pain. 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 Neuro: Other - Present Medications Home Medications: Ambulatory Orders Medication Instructions Recorded Confirmed Sertraline HCl [Zoloft] 100 mg PO DAILY 03/15/14 02/13/21 Ondansetron Odt [Zofran] 4 mg TL Q6H PRN #10 tablet 02/13/21 Amox/Clav 875/125 [Augmentin] 1 each PO Q12H #20 tablet 04/12/21 HYDROcod/ACETAM 5/325 [Roy 5/325] 1 - 2 tab PO Q6H PRN #15 tablet 04/12/21 - Allergies Allergies/Adverse Reactions: Allergies Allergy/AdvReac Type Severity Reaction Status Date / Time No Known Drug Allergies Allergy Verified 04/12/21 17:00 - Social History Does the pt smoke?: No Smoking Status: Never smoker Does the pt drink ETOH?: No Does the pt have substance abuse?: No - Immunizations Immunizations are current?: Yes - POLST Patient has POLST: No PD ED PE NORMAL - Vitals Vital signs reviewed: Yes - General General: Alert and oriented X 3, No acute distress - HEENT HEENT: Other (Tender swollen right anterior submandibular lymph node without overlying skin changes. Visualized portions of the oropharynx are normal. TMs are normal. No cellulitis.) - Neck Neck: Supple, no meningeal sign, No bony TTP - Neuro Neuro: Alert and oriented X 3, Normal speech Results - Vitals Vitals: Vital Signs - 24 hr 04/12/21 17:00 Temperature 37.1 C Heart Rate 88 Respiratory 16 Rate Blood Pressure 116/75 O2 Saturation 99 Oxygen O2 Source Room air PD MEDICAL DECISION MAKING - ED course ED course: This is a young woman with symptomatic acute cervical adenitis which was treated with antibiotics. No worries for travel related illness or cat related illness by history. Departure - Departure Disposition: 01 Home, Self Care Clinical Impression: Lymphadenitis, acute Condition: Good Record reviewed to determine appropriate education?: Yes Instructions: ED Cervical Adenitis Abx Tx Prescriptions: Amox/Clav 875/125 [Augmentin] 1 each PO Q12H #20 tablet HYDROcod/ACETAM 5/325 [Roy 5/325] 1 - 2 tab PO Q6H PRN #15 tablet PRN Reason: Pain Comments: I sent the prescription for pain medicine and antibiotics to [facility] in [place]. Return for new or worsening symptoms. If you have persistent symptoms, reasonable to follow-up with an field research assistant, the closest is in [place], the phone number is [phone]. I am prescribing a short course of narcotic pain medication for you. These are potentially dangerous and addictive medications that should be used carefully. These medications may constipate you. Take an kpvg-vge-gkywyhc stool softener (docusate) twice daily with plenty of water while taking these medications. If you go 24 hours without a bowel movement, take hcyb-dzm-ecqdotb miralax, per package instructions. Do not drink or drive while taking these medications. If you received narcotic or sedating medications while in the emergency department, do not drive for 24 hours. Store this medication in a safe, secure place and out of reach of children. It is a violation of federal law to give or sell this medication to another person or to use in a manner other than prescribed. The ED will not refill narcotic prescriptions, including prescriptions lost or stolen. To dispose of unwanted medications: 1. [facility] at [address] in [place] has a medication drop box. They accept prescription medications (in pill form) Monday through Monday 9:00 a.m. to 5:00 p.m. 2. The [facility] [employer] accepts prescription medications (in pill form only) for disposal year round. Call for more info rmation. 3. Contact the [facility] for the next [facility] sponsored prescription drug collection event. , [phone], or [phone]; Note that many narcotic pain relievers also contain Tylenol/acetaminophen. Please ensure that your total dose of acetaminophen from all sources does not exceed 3 g (3000 mg) per day. Discharge Date/Time: 04/12/21 17:28
== END 2021-04-12 17:28 | disposition home or self-care (01) ==
LOC: ED 16:55
DX: L04.0 Acute lymphadenitis of face, head and neck (principal)
CPT/HCPCS: 99282; A9270

== ENCOUNTER 2021-10-14 16:32 | Emergency (ER) | payer OTHER ==
[2021-10-14 16:54] LABS: BILIRUBIN,URINE NEGATIVE (NEGATIVE); GLUCOSE, URINE (UA) NEGATIVE (NEGATIVE); KETONES,URINE (UA) NEGATIVE (NEGATIVE); LEUKOCYTE ESTERASE, URINE NEGATIVE (NEGATIVE); NITRITE,URINE NEGATIVE (NEGATIVE); OCCULT BLOOD,URINE NEGATIVE (NEGATIVE); PROTEIN,URINE NEGATIVE (NEGATIVE); UROBILINOGEN,URINE 0.2 (NORMAL) E.U./dL (NORMAL)
[2021-10-14 16:57] LABS: CLARITY,URINE CLEAR (CLEAR); HCG UR QUAL NEGATIVE
--- NOTE | 2021-10-14 17:03 | ED Physician Documentation ---
History of Present Illness - Stated complaint Stated Complaint: BACK PX - Chief complaint Chief Complaint: Back Pain - Additonal information Additional information: 31-year-old female presents emergency department for evaluation of right back pain. She states that for about 10 to 14 days she has had pain in her back. Makes it difficult to move and bend forward. She is concerned she could have a urinary tract infection as the symptoms have been somewhat similar to previous kidney infections. She denies dysuria or urgency but is endorsing increased frequency. No fevers. No falls or trauma. She has tried taking ibuprofen for relief of pain without results. No saddle anesthesia recent falls or trauma. No loss of bowel or bladder function. No history of injection drug use or diabetes Review of Systems Constitutional: denies: Fever, Chills Nose: reports: Reviewed and negative Cardiac: reports: Reviewed and negative Respiratory: reports: Reviewed and negative : reports: Frequency. 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 Neuro: Other - Present Medications Home Medications: Ambulatory Orders Medication Instructions Recorded Confirmed Sertraline HCl [Zoloft] 100 mg PO DAILY 03/15/14 02/13/21 Ondansetron Odt [Zofran] 4 mg TL Q6H PRN #10 tablet 02/13/21 Amox/Clav 875/125 [Augmentin] 1 each PO Q12H #20 tablet 04/12/21 HYDROcod/ACETAM 5/325 [Ronald 5/325] 1 - 2 tab PO Q6H PRN #15 tablet 04/12/21 Cyclobenzaprine [Flexeril] 10 mg PO TID PRN #20 tablet 10/14/21 - Allergies Allergies/Adverse Reactions: Allergies Allergy/AdvReac Type Severity Reaction Status Date / Time No Known Drug Allergies Allergy Verified 04/12/21 17:00 - Social History Does the pt smoke?: No Smoking Status: Never smoker Does the pt drink ETOH?: No Does the pt have substance abuse?: No - Immunizations Immunizations are current?: Yes - POLST Patient has POLST: No PD ED PE NORMAL - General General: Alert and oriented X 3, No acute distress, Well developed/nourished - HEENT HEENT: Atraumatic, Moist mucous membranes - Neck Neck: Supple, no meningeal sign - Cardiac Cardiac: RRR, No murmur - Respiratory Respiratory: No respiratory distress, Clear bilaterally - Abdomen Abdomen: Normal bowel sounds, Soft, Non tender, Other (No flank or CVA tenderness elicited) - Back Back: No CVA TTP, No spinal TTP, Other (No thoracic or lumbar paraspinous tenderness elicited. Normal gait. Reduced forward flexion secondary to pain.) - Derm Derm: Normal color, Warm and dry - Extremities Extremities: No deformity - Neuro Neuro: Alert and oriented X 3 Eye Opening: Spontaneous Motor: Obeys Commands Verbal: Oriented GCS Score: 15 Results - Vitals Vitals: Vital Signs - 24 hr 10/14/21 16:35 Temperature 36.2 C L Heart Rate 67 Respiratory 16 Rate Blood Pressure 140/67 H O2 Saturation 100 Oxygen O2 Source Room air - Labs Labs: Laboratory Tests 10/14/21 10/14/21 16:40 16:40 Urine Color YELLOW Urine Clarity CLEAR Urine pH 7.0 Ur Specific [place] 1.010 Urine Protein NEGATIVE Urine Glucose (UA) NEGATIVE Urine Ketones NEGATIVE Urine Occult Blood NEGATIVE Urine Nitrite NEGATIVE Urine Bilirubin NEGATIVE Urine Urobilinogen 0.2 (NORMAL) Ur Leukocyte Esterase NEGATIVE Ur Microscopic Review NOT INDICATED Urine Culture Comments NOT INDICATED Urine HCG, Qual NEGATIVE PD MEDICAL DECISION MAKING - ED course Complexity details: considered differential, d/w patient ED course: This is a very well-appearing 31-year-old female that presents emergency department for evaluation of 10 to 14 days right-sided back pain. She denies any falls or trauma. She is tried using massager's and stretching without relief of pain. She states in the past she has had asymptomatic pyelonephritis and endorses some mild urinary frequency though no urgency or dysuria. Here today in the emergency department on exam I was unable to elicit any significant back tenderness. She did have a normal gait though she was hesitant to bend forward due to the pain elicited in the low back. No flank or CVA tenderness was elicited. No abdominal tenderness was elicited a urine is unremarkable for any findings of infection. I suspect she likely has back strain due to an unclear etiology. Without findings of infection in the urine or fever, my suspicion for an occult Yohan is rather low therefore will defer imaging. Patient will be advised to take Motrin 600 mg with food 2-3 times a day. She has found relief of back pain in the past by using a muscle relaxer therefore prescription for Flexeril will be sent. Emergent return precautions were discussed for worsening symptoms. Departure - Departure Disposition: 01 Home, Self Care Clinical Impression: Acute right-sided back pain Qualifiers: Back pain location: back pain in unspecified location Qualified Code(s): M54.9 - Dorsalgia, unspecified Condition: Stable Record reviewed to determine appropriate education?: Yes Prescriptions: Cyclobenzaprine [Flexeril] 10 mg PO TID PRN #20 tablet PRN Reason: Spasms Comments: Charleen you are seen today in the emergency department because for about 10 to 14 days you have been having some right-sided back pain. You were concerned that you could have a urinary or kidney infection. However your urine urine shows absolutely no signs of infection. I suspect that you may have some thoracic back pain. I would like you to use ibuprofen and a therapeutic dose. Please take 600 mg with food 2-3 times a day. Since you have found Flexeril helpful in the past I have sent this prescription to [facility]. Use it cautiously as it may make you sleepy and too sedated to drive or operate machinery. Gentle stretching and warm compress may be helpful. If at any point you find that your symptoms are worsening, you develop fevers, vomiting have any urinary symptoms, sudden weakness in your legs or numbness in your genital area then you should return immediately to the ER for second evaluation.
[2021-10-14 17:24] VITALS: BP 103/75
== END 2021-10-14 17:25 | disposition home or self-care (01) ==
LOC: ED 16:32
DX: M54.9 Dorsalgia, unspecified (principal); F32.A Depression, unspecified
CPT/HCPCS: 81001; 81003; 81025; 87086; 99282; 99283

== ENCOUNTER 2021-10-24 13:00 | Emergency (ER) | payer OTHER ==
--- NOTE | 2021-10-24 13:56 | ED Physician Documentation ---
PD HPI FEMALE - Stated complaint Stated Complaint: FEMALE - Chief complaint Chief Complaint: Abd Pain - History obtained from History obtained from: Patient - History of Present Illness Timing - onset: How many days ago (3) Timing - duration: Days (3) Timing - details: Abrupt onset (early by dates and home test a week ago. Onset 3 days ago and cramping has lessened. 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: Other Neuro: Other - Present Medications Home Medications: Ambulatory Orders Medication Instructions Recorded Confirmed No Known Home Medications 10/24/21 10/24/21 - Allergies Allergies/Adverse Reactions: Allergies Allergy/AdvReac Type Severity Reaction Status Date / Time No Known Drug Allergies Allergy Verified 10/24/21 13:17 - Social History Does the pt smoke?: No Smoking Status: Never smoker Does the pt drink ETOH?: No Does the pt have substance abuse?: No - Immunizations Immunizations are current?: Yes - POLST Patient has POLST: No PD ED PE NORMAL - Vitals Vital signs reviewed: Yes - General General: Alert and oriented X 3, No acute distress, Well developed/nourished - HEENT HEENT: Pharynx benign - Neck Neck: Supple, no meningeal sign, No adenopathy - Cardiac Cardiac: RRR, No murmur - Respiratory Respiratory: Clear bilaterally - Abdomen Abdomen: Normal bowel sounds, Soft, Non tender, Non distended - Female Female : Deferred - Rectal Rectal: Deferred - Back Back: No CVA TTP - Derm Derm: Normal color, Warm and dry - Neuro Neuro: Alert and oriented X 3, police 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, No motor deficit, No sensory deficit, Normal speech, Other Eye Opening: Spontaneous Motor: Obeys Commands Verbal: Oriented GCS Score: 15 Results - Vitals Vitals: Vital Signs - 24 hr 10/24/21 10/24/21 10/24/21 13:13 14:23 16:00 Temperature 36.1 C L Heart Rate 76 71 79 Respiratory 16 14 15 Rate Blood Pressure 125/72 122/87 H 117/73 O2 Saturation 100 100 100 10/24/21 18:59 Temperature Heart Rate 79 Respiratory 16 Rate Blood Pressure 119/79 O2 Saturation 100 Oxygen O2 Source Room air - Labs Labs: Laboratory Tests 10/24/21 10/24/21 10/24/21 14:16 14:16 14:16 WBC 8.1 RBC 4.85 Hgb 14.8 Hct 43.9 MCV 90.5 MCH 30.5 MCHC 33.7 RDW 12.5 Plt Count 227 MPV 10.4 Neut # (Auto) 5.1 Lymph # (Auto) 2.4 [place] # (Auto) 0.5 Eos # (Auto) 0.1 Baso # (Auto) 0.0 Absolute Nucleated RBC 0.00 Nucleated RBC % 0.0 Sodium 141 Potassium 3.9 Chloride 105 Carbon Dioxide 28 Anion Gap 8.0 BUN 11 Creatinine 0.6 Estimated GFR (MDRD) 116 Glucose 85 Calcium 9.5 Total Bilirubin 0.6 AST 18 ALT 19 Alkaline Phosphatase 33 L Total Protein 8.0 Albumin 4.4 Globulin 3.6 Albumin/Globulin Ratio 1.2 Lipase 36 HCG, Quant Blood Type AB POSITIVE 10/24/21 14:16 WBC RBC Hgb Hct MCV MCH MCHC RDW Plt Count MPV Neut # (Auto) Lymph # (Auto) [place] # (Auto) Eos # (Auto) Baso # (Auto) Absolute Nucleated RBC Nucleated RBC % Sodium Potassium Chloride Carbon Dioxide Anion Gap BUN Creatinine Estimated GFR (MDRD) Glucose Calcium Total Bilirubin AST ALT Alkaline Phosphatase Total Protein Albumin Globulin Albumin/Globulin Ratio Lipase HCG, Quant < 0.60 Blood Type - Rads (name of study) OB U/S Radiology: Prelim report reviewed (from [facility]. There is a small fibroid in uterus. No adnexal masses.), See rad report PD MEDICAL DECISION MAKING - ED course Complexity details: considered differential (given such low quant hcg, seems most reasonable the is miscarrying/ed. Her CBC is good so has not lost too much so far. ), d/w patient, d/w application consultant (Dr. Boudreaux network firewall engineer, who said NSAIDs and tylenol, antiemetic is okay. f/u in office inf days. ) Departure - Departure Disposition: Home, Self Care Clinical Impression: Vaginal bleeding, Miscarriage Condition: Stable Record reviewed to determine appropriate education?: Yes Instructions: ED Miscarriage Incom Follow-Up: [facility] [Provider Group] [facility] [Provider Group] Comments: Stay well-hydrated. You could use ibuprofen 400 to 600 mg 3 times daily with food. Add Tylenol every 4-6 hours if needed for pains or cramps. Your hCG blood test is very low which would correlate with the negative test. Your ultrasound did not show any in the uterus. It was normal ovaries and pelvis otherwise. Presumption is a miscarriage. Typically the bleeding will last for 2 to 3 days so hopefully this will be tapering off in the next 1 to 2 days. We did give a dose of medicine here to try to promote clotting and reduce bleeding. I talked with our on-call SHEEP RANCHER who [facility] in the next 3 to 5 days or so. Follow- up sooner if still persistent significant bleeding or cramps. Off work till the . Forms: Activity restrictions Discharge Date/Time: 10/24/21 16:00
[2021-10-24] MEDS ORDERED: ONDANSETRON 4 MG/2 ML VIAL IVP STA ×2 (14:07→16:37)
[2021-10-24] MEDS ORDERED: SODIUM CHLORIDE 0.9% 1,000 ML IV STA (14:07)
[2021-10-24] MEDS ORDERED: KETOROLAC 15 MG/ML VIAL IVP STA (14:07)
[2021-10-24 14:22] LABS: BASOPHILS % (AUTO) 0.4 %; EOSINOPHILS # (AUTO) 0.1 10^3/uL (0.0-0.7); EOSINOPHILS % (AUTO) 0.9 %; HCT - HEMATOCRIT 43.9 % (37.0-47.0); HGB - HEMOGLOBIN 14.8 g/dL (12.0-16.0); LYMPHOCYTES # (AUTO) 2.4 10^3/uL (1.5-3.5); MEAN CORPUSCULAR HEMOGLOBIN 30.5 pg (27.0-31.0); MEAN CORPUSCULAR HGB CONC 33.7 g/dL (32.0-36.0); MEAN CORPUSCULAR VOLUME 90.5 fL (81.0-99.0); MEAN PLATELET VOLUME 10.4 fL (7.9-10.8); MONOCYTES # (AUTO) 0.5 10^3/uL (0.0-1.0); MONOCYTES % (AUTO) 6.4 %; NEUTROPHILS # (AUTO) 5.1 10^3/uL (1.5-6.6); NEUTROPHILS % (AUTO) 63.1 %; PLT - PLATELET COUNT 227 10^3/uL (130-450); RED BLOOD COUNT 4.85 10^6/uL (4.20-5.40); RED CELL DISTRIBUTION WIDTH 12.5 % (12.0-15.0); WHITE BLOOD COUNT 8.1 x10^3/uL (4.8-10.8)
[2021-10-24 14:41] LABS: ALBUMIN 4.4 g/dL (3.2-5.5); ALBUMIN/GLOBULIN RATIO 1.2 (1.0-2.2); BILIRUBIN,TOTAL 0.6 mg/dL (0.2-1.0); CALCIUM 9.5 mg/dL (8.5-10.3); CREATININE 0.6 mg/dL (0.4-1.0); POTASSIUM 3.9 mmol/L (3.5-5.0)
--- NOTE | 2021-10-24 15:41 | Ultrasound Report ---
PROCEDURE: OB First Trimester w/TV INDICATIONS: EARLY PREG, vb OUTSIDE/PRIOR DATING DATA: Last menstrual period (LMP): 09/18/2021. LMP-based estimated date of delivery (MARGARETTE): 06/25/2022. TECHNIQUE: Real-time scanning was performed of the fetus and maternal pelvic organs, with image documentation. Endovaginal scanning was also performed to better visualize the fetus and maternal ovaries. COMPARISON: None. FINDINGS: No definite intrauterine fluid collection or gestational sac is seen. A subserosal fibroid is seen at the fundus measuring 1.6 cm in maximum dimension. Tiny cystic fibrosis is seen at the lower uterine segment measuring 2 mm. No adnexal mass. Ovaries are unremarkable. IMPRESSION: No intrauterine or ectopic is seen. Findings may represent very early normal vers us early failure. Recommend clinical follow-up and serial beta-hCG measurements, and repeat ultrasound as needed. Reviewed by: Arslan King MD on 10/24/2021 2:39 PM BENNY Approved by: Arslan King MD on 10/24/2021 2:39 PM BENNY Station ID: [id number]
[2021-10-24] MEDS ORDERED: TRANEXAMIC ACID 1,000 MG in SODIUM CHLORIDE 0.9% 100ML 100 ML IV STA (16:03)
[2021-10-24] MEDS ORDERED: CHERRY SYRUP 10 ML UDC PO ONE (16:20)
[2021-10-24] MEDS ORDERED: METHYLERGONOVINE 0.2 MG/ML VIAL PO STA (16:20)
[2021-10-24 19:01] VITALS: BP 119/79
== END 2021-10-24 16:00 | disposition home or self-care (01) ==
LOC: ED 13:00
DX: O03.9 Complete or unspecified spontaneous abortion without complication (principal)
CPT/HCPCS: 36415; 76801; 76817; 80053; 83690; 84702; 85025; 86900; 86901; 96374; 96375; 99282; 99284; A9270; J2210

== ENCOUNTER 2021-12-05 16:28 | Emergency (ER) | payer OTHER ==
[2021-12-05] MEDS ORDERED: METOCLOPRAMIDE 10 MG/2 ML VIAL IVP STA (16:43)
[2021-12-05] MEDS ORDERED: SODIUM CHLORIDE 0.9% 1,000 ML IV STA (16:43)
[2021-12-05] MEDS ORDERED: KETOROLAC 15 MG/ML VIAL IVP STA (16:43)
[2021-12-05] MEDS ORDERED: diphenhydrAMINE INJ 50 MG/ML VIAL IVP STA (16:43)
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
[2021-12-05 17:41] VITALS: BP 120/72
== END 2021-12-05 17:39 | disposition home or self-care (01) ==
LOC: ED 16:28
DX: G43.111 Migraine with aura, intractable, with status migrainosus (principal); Z87.891 Personal history of nicotine dependence
CPT/HCPCS: 96374; 96375; 99282; 99283; J1200; J2765

== ENCOUNTER 2022-02-05 16:52 | Emergency (ER) | payer OTHER ==
--- NOTE | 2022-02-05 18:30 | ED Physician Documentation ---
PD HPI HEADACHE - Stated complaint Stated Complaint: MIGRAINE,NAUSEA - Chief complaint Chief Complaint: Neuro - History obtained from History obtained from: Patient - History of Present Illness Timing - onset: Today Timing - onset during: Light activity Timing - duration: Hours Timing - details: Gradual onset, Still present Worst headache ever?: No: Worst headache ever? (similar to prior migraines) Quality: Throbbing, Aching Associated symptoms: Nausea. No: Fever, Stiff neck, Weakness Improved by: Dark room. No: Meds (tried her migraine meds without improvement. they work most of the time, but occasionally not.) Worsened by: Light, Noise Contributing factors: No: Hypertension, Recent illness Similar symptoms before: Diagnosis (migraines) Recently seen: Not recently seen Review of Systems Constitutional: denies: Fever, Chills Nose: denies: Rhinorrhea / runny nose, Congestion Throat: denies: Sore throat Respiratory: denies: Cough GI: reports: Nausea. 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: Other Neuro: Other - Present Medications Home Medications: Ambulatory Orders Medication Instructions Recorded Confirmed Metoclopramide [Reglan] 10 mg PO Q6H PRN #20 tablet 12/05/21 SUMAtriptan [Imitrex] 25 mg PO ONCE PRN 12/05/21 12/05/21 - Allergies Allergies/Adverse Reactions: Allergies Allergy/AdvReac Type Severity Reaction Status Date / Time No Known Drug Allergies Allergy Verified 12/05/21 16:32 - Social History Does the pt smoke?: No Smoking Status: Former smoker Does the pt drink ETOH?: No Does the pt have substance abuse?: No - Immunizations Immunizations are current?: No Immunizations: Other immun not current - POLST Patient has POLST: No PD ED PE NORMAL - Vitals Vital signs reviewed: Yes - General General: Alert and oriented X 3, Well developed/nourished, Other (appears uncomfortable. hand to side of head. Covering eyes with carvalho of her jacket. ) - HEENT HEENT: PERRL, EOMI - Neck Neck: Supple, no meningeal sign, No adenopathy - Cardiac Cardiac: RRR, No murmur - Respiratory Respiratory: Clear bilaterally - Derm Derm: Normal color, Warm and dry - Extremities Extremities: Normal ROM s pain - Neuro Neuro: Alert and oriented X 3, registered nurse cardiac telemetry 2-12 intact, No motor deficit, No sensory deficit, Normal speech Results - Vitals Vitals: Oxygen O2 Source Room air PD Medical Decision Making - ED course Complexity details: reviewed old records, re-evaluated patient, considered differential (Headache similar to prior migraines. No red flags on history or exam. We will treat with typical migraine medications IV. These have been effective in the past for the patient.), d/w patient Departure - Departure Disposition: 01 Home, Self Care Clinical Impression: Migraine headache Qualifiers: Migraine type: without aura Status migrainosus presence: with status migrainosus Intractability: not intractable Qualified Code(s): G43.001 - Migraine without aura, not intractable, with status migrainosus Condition: Stable Record reviewed to determine appropriate education?: Yes Instructions: ED Headache Migraine Comments: Small frequent fluids. Tylenol or ibuprofen if needed for mild residual headaches later. Continue with the sumatriptan and nausea medicine for further recurrent headaches in the future. Follow-up with your primary care if becoming more frequent for potential addition of daily prophylactic medicine to reduce the headaches in addition to the current symptomatic/reactive medications that you take. Discharge Date/Time: 02/05/22 21:14
[2022-02-05] MEDS ORDERED: SODIUM CHLORIDE 0.9% 1,000 ML IV STA (18:47)
[2022-02-05] MEDS ORDERED: KETOROLAC 15 MG/ML VIAL IVP STA (18:47)
[2022-02-05] MEDS ORDERED: METOCLOPRAMIDE 10 MG/2 ML VIAL IVP STA (18:47)
[2022-02-05] MEDS ORDERED: diphenhydrAMINE INJ 50 MG/ML VIAL IVP STA (18:47)
[2022-02-05] MEDS ORDERED: DEXAMETHASONE 10 MG/ML VIAL IVP STA (19:06)
--- NOTE | 2022-02-05 21:07 | ED Physician Documentation ---
ED Addendum - Addendum Addendum: 02/05/22 21:04 Received sign out from Dr. Garcia at end of his shift. Patient's disposition is imminent at sign out provided she reports adequate relief with the medications given. On reevaluation at approximately 20:45, patient is AAOx3 and in NAD. She reports excellent symptom relief and is requesting d/c home.
[2022-02-05 21:14] VITALS: BP 115/73
== END 2022-02-05 21:14 | disposition home or self-care (01) ==
LOC: ED 16:52
DX: G43.001 Migraine without aura, not intractable, with status migrainosus (principal); Z87.891 Personal history of nicotine dependence
CPT/HCPCS: 96374; 96375; 99282; 99285; J1200; J2765